=== PATIENT | male | born 1995 | race Caucasian/White ===

== ENCOUNTER 2016-09-25 15:19 | Emergency (ER) | payer OTHER ==
[2016-09-25] MEDS ORDERED: ACETAMINOPHEN 325 MG TABLET ONE (16:32)
[2016-09-25] MEDS ORDERED: IBUPROFEN 600 MG TABLET ONE (16:32)
[2016-09-25] MEDS ORDERED: CLINDAMYCIN HCL 150 MG CAPSULE ONE (16:32)
[2016-09-25] MEDS ORDERED: DEXAMETHASONE 4 MG TABLET ONE (16:33)
== END 2016-09-25 16:43 | disposition home or self-care (01) ==
LOC: ED 15:19
DX: J03.00 Acute streptococcal tonsillitis, unspecified (principal)
CPT/HCPCS: 87880; 87804; 99283 ×2; A9270 ×4